=== PATIENT | male | born 1960 | race Caucasian/White ===

== ENCOUNTER 2017-01-06 23:39 | Observation (INO) ==
[2017-01-07 00:28] LABS: Basophils % 0.5 % (0.0-0.8); Eosinophils # 0.2 10*3/uL (0.0-0.87); Eosinophils % 2.3 % (0.00-10.9); Hematocrit 37.5 VOL% (42.0-52.0); Hemoglobin 13.4 GM/DL (14.0-18.0); Immature Granulocytes % 0.4 %; Immature Granulocytes Absolute 0.03 #; Lymphocytes # 1.8 10*3/uL (1.4-4.0); Lymphocytes % 23.2 % (21.2-54.2); Mean Corpuscular HGB Conc 35.7 GM/DL (32-36); Mean Corpuscular Hemoglobin 31 PG (27-34); Mean Corpuscular Volume 87.8 FL (87-102); Mean Platelet Volume 9.1 FL (9.6-12.0); Monocytes # 0.6 10*3/uL (0.11-0.8); Monocytes % 7.8 % (1.7-12.7); Neutrophils # 5.2 10*3/uL (1.4-7.4); Neutrophils % 65.8 % (38.7-73.9); Platelet Count 213 T/CUMM (130-400); Red Blood Count 4.27 MC/CUMM (3.8-5.5); Red Cell Distribution Width 12.4 % (9.3-17.3); White Blood Count 7.8 T/CUMM (4-12)
[2017-01-07 00:38] LABS: PT Patient Result 10.3 SECS; Partial Thromboplastin Time < 21.0 SECS (0-40)
[2017-01-07 00:46] LABS: Albumin 3.7 G/DL (3.4-5.0); Bilirubin,Total 0.5 MG/DL (0.2-1.0); Calcium 8.5 MG/DL (8.5-10.1); Magnesium 1.6 MG/DL (1.8-2.4); Osmolality,Calculated 285.1 MOS/KG (273-304); Potassium 3.5 MMOL/L (3.5-5.1); Total Protein 6.4 G/DL (6.4-8.3)
[2017-01-07 00:55] LABS: Apearance,Urine CLEAR (Clear); Bilirubin,Urine Negative (Negative); Blood, Urine Negative (Negative); Glucose,Urine (UA) Negative (Negative); Ketones,Urine Negative (Negative); Nitrite,Urine Negative (Negative); Protein,Urine Negative; RBC,Urine <1 /HPF (0-4); Urine Color Straw (Yellow); Urine Specific Gravity 1.003 (1.001-1.035); Urine Urobilinogen < 2.0 EU/DL (0.2-1.0); WBC,Urine <1 /HPF (0-6)
[2017-01-07 03:05] LABS: Barbiturates Screen,Urine Negative (Negative); Benzodiazepines Screen,Urine Negative (Negative); Cannabinoid Screen,Urine Negative (Negative); Opiate Screen,Urine Negative (Negative); Phencyclidine Screen,Urine Negative (Negative)
[2017-01-07 07:48] LABS: Troponin I Only < 0.015 NG/ML (0.00-0.045)
[2017-01-07 07:57] LABS: Risk Ratio 4.88; Thyroid Stimulating Hormone 1.57 uIU/ml (0.358-3.74); VLDL CHOLESTEROL 52.8 MG/DL
[2017-01-07] MEDS: ENOXAPARIN 40 MG/0.4 ML SYRINGE SUBCUT SCH ×2 (10:45→10:47)
[2017-01-07] MEDS: ASPIRIN 325 MG TABLET PO SCH (10:45)
[2017-01-07] MEDS: ACETAMINOPHEN 325 MG TABLET PO PRN ×2 (14:11→17:39)
[2017-01-07] MEDS ORDERED: MELATONIN 3 MG TABLET PO PRN (19:42)
[2017-01-07] MEDS: DOXYCYCLINE HYCLATE 100 MG CAPSULE PO SCH (20:24)
[2017-01-08 07:02] LABS: Basophils % 0.6 % (0.0-0.8); Eosinophils # 0.2 10*3/uL (0.0-0.87); Hematocrit 40.1 VOL% (42.0-52.0); Hemoglobin 14.1 GM/DL (14.0-18.0); Immature Granulocytes % 0.3 %; Immature Granulocytes Absolute 0.02 #; Lymphocytes # 2.5 10*3/uL (1.4-4.0); Mean Corpuscular HGB Conc 35.2 GM/DL (32-36); Mean Corpuscular Hemoglobin 31 PG (27-34); Mean Corpuscular Volume 88.1 FL (87-102); Mean Platelet Volume 9.2 FL (9.6-12.0); Monocytes # 0.6 10*3/uL (0.11-0.8); Monocytes % 8.4 % (1.7-12.7); Neutrophils # 3.6 10*3/uL (1.4-7.4); Neutrophils % 51.7 % (38.7-73.9); Platelet Count 207 T/CUMM (130-400); Red Blood Count 4.55 MC/CUMM (3.8-5.5); Red Cell Distribution Width 12.3 % (9.3-17.3); White Blood Count 6.9 T/CUMM (4-12)
[2017-01-08 07:30] LABS: Albumin 3.5 G/DL (3.4-5.0); Bilirubin,Total 1.3 MG/DL (0.2-1.0); Calcium 8.8 MG/DL (8.5-10.1); Osmolality,Calculated 283.1 MOS/KG (273-304); Potassium 3.5 MMOL/L (3.5-5.1); Total Protein 6.2 G/DL (6.4-8.3)
[2017-01-08 07:31] LABS: Troponin I Only < 0.015 NG/ML (0.00-0.045)
[2017-01-08] MEDS: ENOXAPARIN 40 MG/0.4 ML SYRINGE SUBCUT SCH (09:12)
[2017-01-08] MEDS: DOXYCYCLINE HYCLATE 100 MG CAPSULE PO SCH (09:13)
[2017-01-08] MEDS: ASPIRIN 325 MG TABLET PO SCH (09:13)
[2017-01-08 12:14] VITALS: BP 130/91
[2017-01-08] MEDS ORDERED: amLODIPine 5 MG TABLET PO SCH (15:00)
[2017-01-08] MEDS ORDERED: ATORVASTATIN 20 MG TABLET PO SCH (21:00)
== END 2017-01-08 15:39 | disposition home or self-care (01) ==
LOC: EDUNIT# → EDBD → N.ED 23:39 → INTOOBSV 01-07 02:58 → N.EDINP 01-07 02:58 → SUATTDRO 01-07 02:58 → N.2E 01-07 03:40
PROVIDERS: ADMIT Internal Medicine; ATTEND Internal Medicine